=== PATIENT | male | born 1985 | race Hispanic/Latino ===

== ENCOUNTER 2021-02-28 09:43 | Emergency (ER) | payer OTHER ==
[2021-02-28] MEDS ORDERED: DIAZEPAM 5 MG TABLET ONE (11:39)
[2021-02-28] MEDS ORDERED: MORPHINE 4 MG/ML SYR ONE (11:39)
[2021-02-28] MEDS ORDERED: dexAMETHasone 10 MG/ML VIAL ONE (11:40)
[2021-02-28] MEDS ORDERED: KETOROLAC 30 MG/ML INJ ONE (11:40)
[2021-02-28] MEDS ORDERED: ONDANSETRON 4 MG/2 ML VIAL ONE (11:40)
[2021-02-28] MEDS ORDERED: NA CHLORIDE 0.9% 1,000 ML ONE (11:40)
--- NOTE | 2021-02-28 11:51 | RAD REPORT ---
EXAM DESCRIPTION: CTSpine Lumbar Wo Con02/28/2021 11:16 am CLINICAL HISTORY: Back injury with back pain COMPARISON: None TECHNIQUE: Computed axial tomography lumbar spine was obtained with coronal and sagittal reconstruct ion. All CT scans are performed using dose optimization technique as appropriate and may include automated exposure control or mA/KV adjustment according to patient size. FINDINGS: No fracture is seen. No dislocation Small left paracentral disc herniation L4-5. Disc bulge L5-S1 12 millimeter sclerosis L1 vertebral body IMPRESSION: Small left paracentral disc herniation L4-5 No fracture seen 12 millimeter area sclerosis L1 vertebral body. This may be benign. A blastic metastasis can also hav e this appearance.
[2021-02-28 11:53] LABS: Urine Blood Negative (Negative); Urine Glucose Negative (Negative); Urine Protein Negative (Negative); Urine Specific Gravity >=1.030 (1.005-1.030)
[2021-02-28 12:11] LABS: Albumin 4.3 g/dL (3.4-5.0); Bilirubin Total 0.5 mg/dL (0.2-1.0); Potassium 3.8 mmol/L (3.5-5.1); Protein, Total 7.8 g/dL (6.4-8.2)
[2021-02-28 12:21] LABS: Absolute Lymphocytes (CBC) 1.7 K/uL (0.7-4.9); Basophils % 0.9 % (0-1.3); Hematocrit 45.2 % (39.6-49.0); Lymphocytes % 17.4 % (15.3-44.8); MPV 9.6 fL (7.6-11.3); RBC Red Blood Cell Count 5.04 M/uL (4.33-5.43)
--- NOTE | 2021-02-28 12:37 | ER ---
Nurse's Notes [facility] Name: Andrea Mckeon III Age: 35 yrs Sex: Male : 1985 Arrival Date: 02/28/2021 Time: 09:45 Bed 10 Private MD: Diagnosis: Low back pain;Strain of muscle, fascia and tendon of lower back Presentation: 02/28 10:38 Chief complaint: Patient states: Moved some stuff on Saturday and back was sore then this jl7 morning it got worse, tightening and loosening, can't walk, pain to low back, non-radiating. Coronavirus screen: At this time, the client does not indicate any symptoms associated with coronavirus-19. Ebola Screen: No symptoms or risks identified at this time. Initial Sepsis Screen: Does the patient meet any 2 criteria? No. Patient's initial sepsis screen is negative. Does the patient have a suspected source of infection? No. Patient's initial sepsis screen is negative. Risk Assessment: Do you want to hurt yourself or someone else? Patient reports no desire to harm self or others. Onset of symptoms was February 26, 2021. Care prior to arrival: Medication(s) given: Motrin, 800 mg, at 0900. 10:38 Method Of Arrival: Wheelchair jl7 10:38 Acuity: MARCIE 4 jl7 Historical: - Allergies: 10:40 No Known Allergies; jl7 - Home Meds: 10:40 None [Active]; jl7 - PMHx: 10:40 None; jl7 - PSHx: 10:40 None; jl7 - Immunization history:: Adult Immunizations unknown. - Social history:: Smoking status: unknown. - Family history:: not pertinent. Screenin:46 Abuse screen: Denies threats or abuse. Nutritional screening: No deficits noted. ap3 Tuberculosis screening: No symptoms or risk factors identified. Fall Risk No fall in past 12 months (0 pts). No secondary diagnosis (0 pts). No IV (0 pts). Ambulatory Aid- None/Bed Rest/Nurse Assist (0 pts). Gait- Weak (10 pts.). Mental Status- Oriented to own ability (0 pts). Total Andrade Fall Scale indicates No Risk (0-24 pts). Assessment: 10:44 General: Appears in no apparent distress. uncomfortable, Behavior is calm, cooperative, ap3 appropriate for age. Pain: Complains of pain in back Pain began gradually, 2-3 days ago. Neuro: Level of Consciousness is awake, alert, obeys commands, Oriented to person, place, time, situation, Appropriate for age Carpenter Mold are equal bilaterally Moves all extremities. Gait is unable to assess as patient is in wheelchair. Speech is normal. Cardiovascular: Denies chest pain, shortness of breath. Respiratory: Airway is patent Respiratory effort is even, unlabored, Respiratory pattern is regular, symmetrical. GI: No signs and/or symptoms were reported involving the gastrointestinal system. : No signs and/or symptoms were reported regarding the genitourinary system. EENT: No signs and/or symptoms were reported regarding the EENT system. Derm: No signs and/or symptoms reported regarding the dermatologic system. Musculoskeletal: Reports pain in back since Saturday02/25/2021 after moving boxes. Patient states the pain has slowly increased since. . 12:26 Reassessment: Patient and/or family updated on plan of care and expected duration. Pain ap3 level reassessed. Patient is alert/active/playful, equal unlabored respirations, skin warm/dry/pink. Patient states symptoms have improved. Vital Signs: 10:38 BP 137 / 105; Pulse 76; Resp 17; Temp 97.9; Pulse Ox 95% ; Weight 92.99 kg; Height 5 jl7 ft. 4 in. (162.56 cm); Pain 10/10; 13:04 Pulse 69; Resp 17; Pulse Ox 100% on R/A; Pain 4/10; ap3 10:38 Body Mass Index 35.19 (92.99 kg, 162.56 cm) jl7 ED Course: 09:45 Patient arrived in ED. am2 10:40 Triage completed. jl7 10:40 Arm band placed on right wrist. jl7 10:44 Damaris Calzada RN is Primary Nurse. ap3 10:47 Ananda Franco MD is Attending Physician. [facility] 10:47 Patient has correct armband on for positive identification. Call light in reach. ap3 patient in wheelchair with wheels locked. NIBP on. Door closed. Noise minimized. 11:16 CT Lumbar Spine Wo Con In Process Unspecified. EDMS 11:34 Inserted saline lock: 20 gauge in left antecubital area, using aseptic technique. Blood ap3 collected. 12:34 Elliot Lassiter MD is Referral Physician. [facility] 13:00 No provider procedures requiring assistance completed. IV discontinued, intact, ap3 bleeding controlled, No redness/swelling at site. Pressure dressing applied. Administered Medications: 11:33 Drug: Zofran (Ondansetron) 4 mg Route: IVP; Site: left antecubital; ap3 12:24 Follow up: Response: No adverse reaction ap3 11:33 Drug: Decadron - Dexamethasone 10 mg Route: IVP; Site: left antecubital; ap3 12:24 Follow up: Response: No adverse reaction ap3 11:33 Drug: Valium (diazepam) 5 mg Route: PO; ap3 12:24 Follow up: Response: No adverse reaction; Pain is decreased ap3 11:34 Drug: NS 0.9% 1000 ml Route: IV; Rate: 1 bolus; Site: left antecubital; ap3 13:00 Follow up: IV Status: Completed infusion; IV Intake: 1000ml ap3 11:34 Drug: TORadol (ketorolac) 30 mg Route: IVP; Site: left antecubital; ap3 12:25 Follow up: Response: No adverse reaction; Pain is decreased; RASS: Alert and Calm (0) ap3 11:34 Drug: morphine 4 mg Route: IVP; Site: left antecubital; ap3 12:24 Follow up: Response: No adverse reaction; Pain is decreased; RASS: Alert and Calm (0) ap3 Intake: 13:00 IV: 1000ml; Total: 1000ml. ap3 Outcome: 12:36 Discharge ordered by . [facility] 13:00 Discharged to home ambulatory. ap3 13:00 Condition: good 13:00 Discharge instructions given to patient, Instructed on discharge instructions, follow up and referral plans. medication usage, Demonstrated understanding of instructions, follow-up care, medications, Prescriptions given X 3. 13:30 Patient left the ED. ap3 Signatures: Dispatcher [employer] EDAnanda Fierro MD MD cha Leal, Jahala RN RN ambar7 Damaris Diaz Amanda, RN RN ap3 Corrections: (The following items were deleted from the chart) 10:40 10:38 Care prior to arrival: None. bradley huerta
--- NOTE | 2021-02-28 12:37 | EDPHYS ---
Physician Documentation [facility] Name: Andrea Mckeon III Age: 35 yrs Sex: Male : 1985 Arrival Date: 02/28/2021 Time: 09:45 Bed 10 Private MD: ROBERTO Physician Ananda Franco HPI: 02/28 12:29 This 35 yrs old Male presents to ER via Wheelchair with complaints of Back ketan Pain. 12:29 The patient presents with pain that is acute, with no known mechanism of injury. The ketan symptoms are located in the low back, lumbar area. Onset: The symptoms/episode began/occurred 1 day(s) ago. The pain does not radiate. Associated signs and symptoms: The patient has no apparent associated signs or symptoms. The problem was sustained from unknown cause. Modifying factors: The patient symptoms are alleviated by remaining still. Severity of symptoms: At their worst the symptoms were mild, moderate, in the emergency department the symptoms are unchanged. The patient has not experienced similar symptoms in the past. Historical: - Allergies: 10:40 No Known Allergies; jl7 - Home Meds: 10:40 None [Active]; jl7 - PMHx: 10:40 None; jl7 - PSHx: 10:40 None; jl7 - Immunization history:: Adult Immunizations unknown. - Social history:: Smoking status: unknown. - Family history:: not pertinent. ROS: 12:29 Constitutional: Negative for fever, chills, and weight loss, Eyes: Negative for injury, ketan pain, redness, and discharge, ENT: Negative for injury, pain, and discharge, Neck: Negative for injury, pain, and swelling, Cardiovascular: Negative for chest pain, palpitations, and edema, Respiratory: Negative for shortness of breath, cough, wheezing, and pleuritic chest pain, Abdomen/GI: Negative for abdominal pain, nausea, vomiting, diarrhea, and constipation, : Negative for injury, bleeding, discharge, and swelling, MS/Extremity: Negative for injury and deformity, Skin: Negative for injury, rash, and discoloration, Neuro: Negative for headache, weakness, numbness, tingling, and seizure, Psych: Negative for depression, anxiety, suicide ideation, homicidal ideation, and hallucinations, Allergy/Immunology: Negative for hives, rash, and allergies, Endocrine: Negative for neck swelling, polydipsia, polyuria, polyphagia, and marked weight changes, Hematologic/Lymphatic: Negative for swollen nodes, abnormal bleeding, and unusual bruising. 12:29 Back: Positive for decreased range of motion, pain at rest, pain with movement, of the lumbar area. Exam: 12:29 Constitutional: This is a well developed, well nourished patient who is awake, alert, ketan and in no acute distress. Head/Face: Normocephalic, atraumatic. Eyes: Pupils equal round and reactive to light, extra-ocular motions intact. Lids and lashes normal. Conjunctiva and sclera are non-icteric and not injected. Cornea within normal limits. Periorbital areas with no swelling, redness, or edema. ENT: Nares patent. No nasal discharge, no septal abnormalities noted. Tympanic membranes are normal and external auditory canals are clear. Oropharynx with no redness, swelling, or masses, exudates, or evidence of obstruction, uvula midline. Mucous membranes moist. Neck: Trachea midline, no thyromegaly or masses palpated, and no cervical lymphadenopathy. Supple, full range of motion without nuchal rigidity, or vertebral point tenderness. No Meningismus. Chest/axilla: Normal chest wall appearance and motion. Nontender with no deformity. No lesions are appreciated. Cardiovascular: Regular rate and rhythm with a normal S1 and S2. No gallops, murmurs, or rubs. Normal PMI, no JVD. No pulse deficits. Respiratory: Lungs have equal breath sounds bilaterally, clear to auscultation and percussion. No rales, rhonchi or wheezes noted. No increased work of breathing, no retractions or nasal flaring. Abdomen/GI: Soft, non-tender, with normal bowel sounds. No distension or tympany. No guarding or rebound. No evidence of tenderness throughout. Male : Normal genitalia with no discharge or lesions. Skin: Warm, dry with normal turgor. Normal color with no rashes, no lesions, and no evidence of cellulitis. MS/ Extremity: Pulses equal, no cyanosis. Neurovascular intact. Full, normal range of motion. Neuro: Awake and alert, GCS 15, oriented to person, place, time, and situation. Cranial nerves II-XII grossly intact. Motor strength 5/5 in all extremities. Sensory grossly intact. Cerebellar exam normal. Normal gait. Psych: Awake, alert, with orientation to person, place and time. Behavior, mood, and affect are within normal limits. 12:29 Back: pain, that is moderate, ROM is painful, with all movement, normal spinal alignment noted, CVA tenderness, that is moderate, muscle spasm, is not present. Vital Signs: 10:38 BP 137 / 105; Pulse 76; Resp 17; Temp 97.9; Pulse Ox 95% ; Weight 92.99 kg; Height 5 jl7 ft. 4 in. (162.56 cm); Pain 10/10; 13:04 Pulse 69; Resp 17; Pulse Ox 100% on R/A; Pain 4/10; ap3 10:38 Body Mass Index 35.19 (92.99 kg, 162.56 cm) jl7 MDM: 10:47 Patient medically screened. ketan 12:31 Differential diagnosis: chronic back pain, Fatigue Fracture Obesity Osteoarthritis ketan ruptured disc, sprain, Ureterolithiasis. Data reviewed: vital signs, nurses notes, lab test result(s), radiologic studies, CT scan. Data interpreted: monitor car operator: rate is 76 beats/min, rhythm is regular, Pulse oximetry: on room air is 95 %. Counseling: I had a detailed discussion with the patient and/or guardian regarding: the historical points, exam findings, and any diagnostic results supporting the discharge/admit diagnosis, lab results, radiology results, the need for outpatient follow up, for definitive care, a family practitioner, a neurologist. 02/28 10:49 Order name: CBC with Diff; Complete Time: 12:29 [facility] 02/28 10:49 Order name: Comprehensive Metabolic Panel; Complete Time: 12:22 ketan 02/28 10:49 Order name: CT Lumbar Spine Wo Con; Complete Time: 12:22 ketan 02/28 11:53 Order name: Urine Dipstick-Ancillary; Complete Time: 12:22 EDMS 02/28 10:49 Order name: Urine Dipstick-Ancillary (obtain specimen); Complete Time: 11:57 [facility] Administered Medications: 11:33 Drug: Zofran (Ondansetron) 4 mg Route: IVP; Site: left antecubital; ap3 12:24 Follow up: Response: No adverse reaction ap3 11:33 Drug: Decadron - Dexamethasone 10 mg Route: IVP; Site: left antecubital; ap3 12:24 Follow up: Response: No adverse reaction ap3 11:33 Drug: Valium (diazepam) 5 mg Route: PO; ap3 12:24 Follow up: Response: No adverse reaction; Pain is decreased ap3 11:34 Drug: NS 0.9% 1000 ml Route: IV; Rate: 1 bolus; Site: left antecubital; ap3 13:00 Follow up: IV Status: Completed infusion; IV Intake: 1000ml ap3 11:34 Drug: TORadol (ketorolac) 30 mg Route: IVP; Site: left antecubital; ap3 12:25 Follow up: Response: No adverse reaction; Pain is decreased; RASS: Alert and Calm (0) ap3 11:34 Drug: morphine 4 mg Route: IVP; Site: left antecubital; ap3 12:24 Follow up: Response: No adverse reaction; Pain is decreased; RASS: Alert and Calm (0) ap3 Disposition Summary: 02/28/21 12:36 Discharge Ordered Location: Home ketan Problem: new ketan Symptoms: have improved ketan Condition: Stable ketan Diagnosis - Low back pain ketan - Strain of muscle, fascia and tendon of lower back ketan Followup: ketan - With: Private Physician - When: 2 - 3 days - Reason: Recheck today's complaints, Continuance of care, Re-evaluation by your physician Followup: ketan - With: Elliot Lassiter MD - When: 2 - 3 days - Reason: Recheck today's complaints, Continuance of care, Re-evaluation by your physician Discharge Instructions: - Discharge Summary Sheet ketan - Acute Back Pain, Adult ketan - Musculoskeletal Pain ketan - Chronic Back Pain, [id number] ketan Forms: - Medication Reconciliation Form ketan - Thank You Letter ketan - Antibiotic Education ketan - Prescription Opioid Use ketan Prescriptions: - Ibuprofen 600 mg Oral Tablet - take 1 tablet by ORAL route every 6 hours As needed take with food; 30 tablet; ketan Refills: 0, Product Selection Permitted - Medrol (Steve) 4 mg Oral Tablets, Dose Pack - take 1 tablet by ORAL route as directed - follow package instructions; 1 ketan packet; Refills: 0, Product Selection Permitted - Cyclobenzaprine 5 mg Oral Tablet - take 1 tablet by ORAL route 3 times per day As needed; 15 tablet; Refills: 0, ketan Product Selection Permitted Signatures: Dispatcher [employer] EDMS Salvador, Ananda, MD MD ketan Pollock, Jahala, RN RN jl7 Damaris Calzada RN RN ap3
[2021-02-28 13:38] VITALS: BP 137/105; TEMP 97.9
[2021-02-28 13:40] VITALS: O2SAT 100
== END 2021-02-28 13:30 | disposition home or self-care (01) ==
LOC: ER 09:43
DX: S39.012A Strain of muscle, fascia and tendon of lower back, initial encounter (principal)
CPT/HCPCS: 96361; 85025; 36415; 81003; 80053; 72131; 96375; 96374; 99284; J1100; J7030; J2405